=== PATIENT | male | born 1970 | race African-American/Black ===

== ENCOUNTER 2019-01-19 07:52 | Day surgery (SDC) | payer OTHER, SELFPAY ==
[2019-01-13 14:41] VITALS: BMI 46.4
[2019-01-19] VITALS (11 sets, daily range): BP systolic 114–175; BP diastolic 77–112; PULSE 87–107; RESP 11–21; TEMP 36.3–36.7; O2SAT 3–96; BMI 46.4
[2019-01-19] MEDS: LACTATED RINGERS 1,000 ML 42 ML IV ×2 (08:15→12:28)
[2019-01-19] MEDS: fentaNYL 100 MCG/2 ML INJ 50 MCG IV (10:15)
[2019-01-19] MEDS: MIDAZOLAM 2 MG/2 ML VIAL IV (10:15)
--- NOTE | 2019-01-19 10:32 | PM.PREOP ---
Pre-operative Note Interval Note History & Physical reviewed/Exam performed by Physician: Yes Changes to H&P: No
[2019-01-19] MEDS: CEFAZOLIN 2 GM/100 ML FROZ.PIGGY IV (10:39)
--- NOTE | 2019-01-19 10:43 | SUR.PREOP ---
Block start time 1015 . Monitoring initiated and maintained throughout procedure. Oxygen and medications given per anesthesiologist instructions. Patient remained stable throughout procedure, no adverse reactions noted. Block end time 1026.
--- NOTE | 2019-01-19 11:31 | SUR.OPER ---
Beach chair with Davide/Morris shoulder positioner. Lower body on padded OR bed. Head in foam padded head cradle, secured with straps. Non-operative arm secured <90 degrees abduction. Pillow under knees. Safety belt at thigh. Cloth tape over blanket over lower legs and across torso.
[2019-01-19] MEDS: BUPIVACAINE 0.5% W/ EPI (PF) VIAL 30 ML INJ (11:51)
[2019-01-19] MEDS: SODIUM CHLORIDE IRRIG SOLUTION 3,000 ML, EPINEPHrine 1 MG IRR (12:05)
--- NOTE | 2019-01-19 12:29 | PM.OP.1 ---
Operative Date/Time/Diagnoses Date of procedure: 01/19/19 Time of procedure: 11:16 Pre-op diagnosis: Right shoulder rotator cuff tear as well as labral tear Post-op diagnosis: same Procedure & Clinicians Procedure: Right shoulder arthroscopic extensive debridement with subacromial decompression, distal clavicle excision, arthroscopic rotator cuff repair, and biceps tenodesis Same procedure as scheduled: Yes Indications: Patient is status post a work related injury to his right shoulder resulting in a small full-thickness tear to his work supraspinatus as well as extensive tearing to the superior labrum and extending anteriorly. Patient had signs of impingement as well as biceps pathology. None of the symptoms responded well to conservative treatment so patient was interested in surgical treatment. Surgeon: Marcell Marsh Project Facilitator: Cha Batista Click Yes if Unassisted: No Anesthesia Type: General and Peripheral nerve block Operative Notes Findings: Significant tearing to the biceps at its anchor point to the labrum. This tearing was extended distally in the articular portion of the biceps. Large slap tear with significant peel off of the superior glenoid. Patient had some mild tearing to the anterior inferior portion of the labrum but nothing consistent of a Bankart tear. High-grade partial tearing to the anterior portion of the supraspinatus with 1 area of full-thickness tearing. Some mild fraying of the infraspinatus but no high-grade partial tears. Subscapularis free of any signs of tearing either partial or full-thickness. No loose bodies. Mild arthritic changes to the glenohumeral joint but no sign of any full-thickness cartilage loss. Significant arthritis to the AC joint with large inferior osteophytes. Signs of subacromial impingement with quite a bit of bursitis and synovitis in the subacromial in the subdeltoid space. Closure Type: primary Specimen(s): none sent Prosthetic devices, grafts, tissues, transplants, or devices: Lateral Arthrex anchor. Biceps tenodesis screw Applied: implant(s) Estimated Blood Loss (mL): 10 Blood products transfused: none Procedure in detail: On date of service, Patient was met in the holding area. The operative site was signed and witnessed by the OR staff. The surgeries once again discussed with the patient and any remaining questions they had were answered fully. Patient was taken back to the operating theater and placed on the operating table in a supine position. Great care was taken to ensure that all bony prominences were properly padded. Patient was then placed into the beach chair position. The head and neck were properly positioned and secured. A timeout was performed verifying patient's name, procedure, and the operative site. The upper extremity was then prepped and draped in the normal sterile fashion. Previously, the bony anatomy and portal sites were marked out as well as injected with Marcaine with epinephrine. An 11 blade was used to make an incision in the posterior aspect of the shoulder. The camera was placed, and a diagnostic shoulder scope was performed. Findings listed above. Next under direct visualization, a anterior portal was made. As mentioned above, patient had a significant slap tear. There was also quite a bit of tearing to the proximal biceps starting at its anchor point and progressing distally. Due to this fact, the proximal biceps was released in tagged with a spinal needle. The superior labral tear was debrided back down to healthy tissue using the shaver. Extensive debridement of the glenohumeral joint was performed cleaning up the degenerative as well as traumatic changes to the labrum. There was some tearing anteriorly but not causing any glenohumeral instability or subluxation. Next the camera was placed into the subacromial space. A lateral portal was obtained under direct visualization. A combination of the shaver and vapor wand, a debridement of the inflamed tissue as well as inflamed bursa was performed. The lateral gutter was also cleaned out. There was a significant amount of bursitis and synovitis in both the subacromial and subdeltoid space. After this was all cleaned out, This gave us good visualization of the bursal aspect of the rotator cuff as well as the acromial arch. There was an obvious impingement lesion in the acromial arch. Next we turned our attention to the subacromial decompression. Next, a mechanical rasp was then used to do a subacromial decompression. This allowed us to convert the acromion to a type I acromial. This also allowed us to shave down the bony lesion in the acromial space. The rasp was placed into the lateral portal as well as the anterior portal in order to do a complete subacromial decompression. We next turned our attention to the distal clavicle. Using the shaver in the vapor wand we were able to clean out all the soft tissue around the distal clavicle as well as into the a.c. joint. This gave us good visualization of the arthritic changes to the distal clavicle as well as good of the a.c. joint allowing us to assess our distal clavicle excision. Of the inferior osteophytes coming off the distal clavicle. Using the mechanical rasp in the anterior portal, we were able to remove the inferior osteophytes as well as do a distal clavicle excision. The camera was then placed into the anterior portal which gave us a direct visualization of the a.c. joint allowing us to assess the distal clavicle excision. We then turned our attention to the rotator cuff tear. Patient had a small full-thickness tear involving the supraspinatus. There was very minimal retraction. The bony footprint was debrided down to good bleeding bone. Fiber tape was passed in a horizontal mattress pattern and then placed into a lateral anchor providing a good repair of the rotator cuff tear. Shoulder was taken through range of motion and there was no sign of any other tearing. No sign of any impingement lesions. Cameras were removed and we turned our attention to the biceps tenodesis. Using a 15 blade, a 4 cm incision was made in the axillary crease extending proximally. Electrocautery was used to achieve hemostasis and a retractor was placed. Blunt dissection was performed through the musculature allowing us to get down to the biceps. Hohmann retractors were placed on either side of the humeral shaft given us good visualization of the bicipital groove as well as the biceps tendons. Biceps was pulled out of the shoulder joint. The biceps tendon was then cut to length and then whip stitched. 8 mm unicortical drill hole was made into the bicipital groove. This was then copiously irrigated. The biceps under tension it was then tenodesed in this 8 mm hole with an 8 mm tenodesis screw. This provided a secure fixation of the proximal biceps. The wound was copiously irrigated and then closed in layered fashion. The rest of the wounds were closed as well. The shoulder was then cleaned, dried, and dressed. Patient was extubated and taken to the PACU in stable condition. Complications: none Post-operative Condition: stable Disposition: PACU Plan for aftercare: Patient will follow our postoperative protocol for rotator cuff repair as well as biceps tenodesis.
--- NOTE | 2019-01-19 13:43 | SUR.PHASEI ---
Patient unable to maintain to maintain sats > 90 on RA. Patient insists that sats at 88% is normal for him. Drsg is CDI. LS CTA, diminshed. Will continue to monitor.
--- NOTE | 2019-01-19 13:50 | SUR.PHASEI ---
Encouraging patient to use IS, and cough and deep breath. Patient has strong productive cough. Patient continues to sat 89/90 on RA. Patient refusing NC, states he will get pneumonia if he continues on 2L NC.
[2019-01-19] MEDS: OXYCODONE IR 5 MG TABLET PO (14:09)
--- NOTE | 2019-01-19 14:36 | SUR.PHASEII ---
PT UP TO BR TO VOID, PT EXPRESSING DESIRE AND READYNESS TO GO HOME, DR BUNCH IN TO SEE PT AND ASSESS RESPIRATORY STATUS, PT DOES HAVE DIMINISHED BREATH SOUNDS ON RIGHT VS LEFT, PT USING INCENTIVE SPIROMETER, DENIES FEELING SHORT OF BREATH, STATES HIS PAIN IS TOLERABLE AT 2/10. D/C INSTRUCTIONS REVIEWED WITH PT AND HIS DAUGHTER WITH VERBALIZED UNDERSTANDING, OK TO D/C PT HOME PER DR BUNCH.
== END 2019-01-19 14:39 | disposition home or self-care (01) ==
PROVIDERS: PCP Preventive Medicine Occupational Medicine; Visit Provider Orthopaedic Surgery
PROC: (CPT 29827; principal; 2019-01-19 09:45)
DX: M75.111 Incomplete rotator cuff tear or rupture of right shoulder, not specified as traumatic (principal); S43.431D Superior glenoid labrum lesion of right shoulder, subsequent encounter; M19.011 Primary osteoarthritis, right shoulder; G89.18 Other acute postprocedural pain; M71.9 Bursopathy, unspecified; M65.811 Other synovitis and tenosynovitis, right shoulder; M25.711 Osteophyte, right shoulder; S46.211A Strain of muscle, fascia and tendon of other parts of biceps, right arm, initial encounter
CPT/HCPCS: 23430; 29827; 29823; 29824; 29826; 64415; J0171; J0690; J1100; J2250; J2405; J2704; J3010

== ENCOUNTER 2019-12-28 06:00 | Day surgery (SDC) | payer OTHER, SELFPAY ==
[2019-12-26 08:37] VITALS: BMI 47.4
[2019-12-28] VITALS (10 sets, daily range): BP systolic 157–192; BP diastolic 96–125; PULSE 96–107; RESP 18–22; TEMP 36.6–36.8; O2SAT 92–97; BMI 47.4
--- NOTE | 2019-12-28 07:39 | PM.PREOP ---
Pre-operative Note COVID-19 COVID-19 status: Negative Result date/Date tested (Pos, Neg/Pending): 12/26/19 Interval Note History & Physical reviewed/Exam performed by Physician: Yes Changes to H&P: No
[2019-12-28] MEDS: CEFAZOLIN 2 GM/100 ML FROZ.PIGGY IV (07:43)
--- NOTE | 2019-12-28 07:50 | PM.HP.1 ---
History of Present Illness History of Present Illness Chief complaint: left shoulder pain Patient History Medical History Incomplete tear of right rotator cuff (Acute ~10/2018) Osteoarthritis (Acute) Shoulder pain (Acute) Surgical History History of arthroscopy of right shoulder (Acute 01/19/19) History of carpal tunnel surgery of left wrist (Acute) Hx of arthroscopy of knee (Acute) Status post epidural steroid injection (Acute) Family & Social History Social History: household members family Tobacco & Substance use: Tobacco type smokeless tobacco Smoking Status Never smoker alcohol intake current Substance Use Type does not use Meds Home Medications and Allergies Home Medications Medication Instructions Recorded Confirmed Type epinephrine [EpiPen] 0.3 mg IM DIRECTED PRN 01/13/19 12/26/19 History gabapentin 300 - 600 mg PO BEDTIME 12/26/19 12/26/19 History hydrocodone-acetaminophen 1 tab PO Q6H PRN 12/26/19 12/28/19 History tramadol 50 - 100 mg PO Q6H PRN 12/26/19 12/28/19 History Allergies Allergy/AdvReac Type Severity Reaction Status Date / Time venom-honey bee Allergy Verified 01/13/19 14:43 Review of Systems Review of Systems ROS: Yes All systems reviewed with the patient and are negative except as otherwise documented Exam Vital Signs (past 8 hours): - 12/28/19 06:42 Temperature 98.2 F Pulse Rate 96 H Respiratory Rate 22 Blood Pressure 162/103 H Pulse Oximetry 95 Oxygen Delivery Method Room Air Narrative Exam Narrative: Decreased range of motion to the left shoulder. No sign of any swelling or deformities. Difficulty forward flexing and abducting the shoulder beyond 90?. Normal external rotation with the arm at the side but internal rotation just to the small of the back. Positive impingement signs. Tender to palpation over the AC joint. Pain and weakness with supraspinatus strength testing. Normal strength in infraspinatus and subscapular strength testing. No sign of any shoulder instability. Assessment & Plan Assessment & Plan narrative: Patient with left shoulder pain has been unresponsive to conservative treatment. Due to this fact patient is interested in surgery to address his impingement and rotator cuff pathology. Patient fully understands the risks and limitations associated with the procedure. All of his questions and concerns were answered to his full satisfaction. COVID-19 COVID-19 status: Negative Time Spent With Patient Time with patient: less than 15 minutes
--- NOTE | 2019-12-28 08:25 | SUR.OPER ---
Beach chair on padded OR bed. Head on gel donut secured with tape over gauze. Non-operative arm secured <90 degrees abduction on padded arm board. Pillow under knees. Safety belt at thigh. Cloth tape over blanket over lower legs.
[2019-12-28] MEDS: SODIUM CHLORIDE IRRIG SOLUTION 3,000 ML, EPINEPHrine 1 MG IRR (08:32)
[2019-12-28] MEDS: BUPIVACAINE 0.5% W/ EPI (PF) 30 ML VIAL INJ (08:32)
[2019-12-28] MEDS: OXYCODONE/ACETAMINOPHEN 5/325 TABLET 1 TAB PO ×2 (09:16→09:50)
--- NOTE | 2019-12-28 09:16 | P.OP_ITS ---
Operative Date/Time/Diagnoses Date of procedure: 12/28/19 Time of procedure: 08:00 Pre-op diagnosis: Left shoulder impingement as well as AC joint arthritis. Previous history of a shoulder dislocation. Post-op diagnosis: same Procedure & Clinicians Procedure: Left shoulder arthroscopic extensive debridement as well as subacromial decompression and distal clavicle excision. As well as postoperative blockage of the suprascapular nerve. Same procedure as scheduled: Yes Indications: Left shoulder pain unresponsive to conservative treatment. Patient had signs of impingement arthritic changes to the glenohumeral joint as well as AC joint arthritis. Surgeon: Marcell Marsh Hand Sprayer: Humberto Ashby Click Yes if Unassisted: No Anesthesia Type: General Operative Notes Findings: Early stage arthritic changes to the glenohumeral joint with some thinning and fraying of the articular cartilage. No sign of any full-thickness cartilage loss. Minor partial tearing to the articular surface of the supraspinatus less than 50%. Significant labrum tearing circumferentially. Type 1 slap tear. No extension into the bicipital anchor. No sign of any biceps subluxation or tearing. No sign of any significant Bankart tear. Degenerative changes to the posterior aspect of the labrum. Significant synovitis and bursitis in the subacromial and subdeltoid space. Mild fraying to the bursal aspect of the rotator cuff with no sign of any high-grade partial tears or full-thickness tears. Arthritic changes to the AC joint and signs of subacromial impingement. Closure Type: primary Specimen(s): none sent Estimated Blood Loss (mL): 5 Blood products transfused: none Procedure in detail: On date of service, Patient was met in the holding area. The operative site was signed and witnessed by the OR staff. The surgeries once again discussed with the patient and any remaining questions they had were answered fully. Patient was taken back to the operating theater and placed on the operating table in a supine position. Great care was taken to ensure that all bony prominences were properly padded. Patient was then placed into the beach chair position. The head and neck were properly positioned and secured. A timeout was performed verifying patient's name, procedure, and the operative site. The upper extremity was then prepped and draped in the normal sterile fashion. Previously, the bony anatomy and portal sites were marked out as well as injected with Marcaine with epinephrine. An 11 blade was used to make an incision in the posterior aspect of the shoulder. The camera was placed, and a diagnostic shoulder scope was performed. Findings listed above. Next under direct visualization, a anterior portal was made. Shaver was placed into the anterior portal and extensive debridement of the glenohumeral joint was perfo rmed. The extensive tearing circumferentially throughout the labrum was debrided back to more normal healthy tissue. As well as debriding the type 1 slap tear. There was some mild partial tearing to the articular surface of the rotator cuff that was also debrided using the shaver. Next the camera was placed into the subacromial space. A lateral portal was obtained under direct visualization. A combination of the shaver and vapor wand, a debridement of the inflamed tissue as well as inflamed bursa was performed. The lateral gutter was also cleaned out. This gave us good visualization of the bursal aspect of the rotator cuff as well as the acromial arch. There was an obvious impingement lesion in the acromial arch. Next we turned our attention to the subacromial decompression. Next, a mechanical rasp was then used to do a subacromial decompression. This allowed us to convert the acromion to a type I acromial. This also allowed us to shave down the bony lesion in the acromial space. The rasp was placed into the lateral portal as well as the anterior portal in order to do a complete subacromial decompression. We next turned our attention to the distal clavicle. Using the shaver in the vapor wand we were able to clean out all the soft tissue around the distal clavicle as well as into the a.c. joint. This gave us good visualization of the arthritic changes to the distal clavicle as well as good of the a.c. joint allowing us to assess our distal clavicle excision. Of the inferior osteophytes coming off the distal clavicle. Using the mechanical rasp in the anterior por saida, we were able to remove the inferior osteophytes as well as do a distal clavicle excision. The camera was then placed into the anterior portal which gave us a direct visualization of the a.c. joint allowing us to assess the distal clavicle excision. We then turned our attention to the rotator cuff tear. There was no signs of any significant bursal sided tears. There was some mild fraying to the bursal side of the rotator cuff but no sign of any high-grade partial tears or full- thickness tears. A shaver was used to debride the bursal aspect of the supra and infraspinatus. The shoulder was then taken through range of motion and there was no sign of any additional impingement. Next, the suprascapular nerve was blocked. Patient's shoulder was then cleaned dried and dressed and patient was taken to the PACU in stable condition. Complications: none Post-operative Condition: stable Disposition: PACU Plan for aftercare: Patient will be in a sling for the next 48-72 hours. Sling is just for comfort. Patient will start range of motion exercises with the physical therapist early next week.
[2019-12-28] MEDS: fentaNYL 100 MCG/2 ML INJ IV ×2 (09:17→09:36)
[2019-12-28] MEDS: hydrOXYzine 50 MG/ML INJ 25 MG IM (09:57)
--- NOTE | 2019-12-28 10:01 | SUR.PHASEI ---
Patient c/o 8\10 pain, states pain is improving, 6-10 after giving IV and po medication. Radial pulse to left arm + 3. Able to move fingers, but states they are numb. Patient is hypertensive at 161/114. Dr Taylor aware.
--- NOTE | 2019-12-28 10:49 | SUR.PHASEII ---
1015-pt rcvd from pacu report from [facility]. Pt sitting up taking po fluids without problems, VSS, up and ambulating now, to br, gait steady. Getting dressed. Iv dcd site clear. All dc instructions given and pt verbalizes understanding, rxs in with dc instructions and pt states he will go to outside pharmacy and fill.
--- NOTE | 2019-12-28 10:53 | SUR.PHASEII ---
1035-Pt dcd in stable condition via [facility] with no c/o
== END 2019-12-28 10:35 | disposition home or self-care (01) ==
PROVIDERS: PCP Preventive Medicine Occupational Medicine; Referring Provider Preventive Medicine Occupational Medicine; Visit Provider Orthopaedic Surgery
PROC: (CPT 29827; principal; 2019-12-28 07:45)
DX: M75.42 Impingement syndrome of left shoulder (principal); M19.012 Primary osteoarthritis, left shoulder; M21.822 Other specified acquired deformities of left upper arm; Z72.0 Tobacco use; M24.112 Other articular cartilage disorders, left shoulder; S43.432A Superior glenoid labrum lesion of left shoulder, initial encounter; M65.812 Other synovitis and tenosynovitis, left shoulder; M75.52 Bursitis of left shoulder; X50.0XXA Overexertion from strenuous movement or load, initial encounter
CPT/HCPCS: 29823; 29824; 29826; J0171; J0330; J0690; J1100; J2250; J2405; J2704; J3010; J3410